=== PATIENT | female | born 1990 | race Caucasian/White ===

== ENCOUNTER 2016-06-30 02:02 | Emergency (ER) | payer OTHER ==
[~2016-06-30] VITALS: Ht 147.3 cm; Wt 45.4 kg
--- NOTE | ~2016-06-30 | EKG ---
[place], [place] ELECTROCARDIOGRAM REPORT NAME: IMMANUEL NEGRO UNIT #: [id number] ROOM: DOCTOR: MINAL SERNA MD BIRTHDATE: [birth year] DOS: 06/30/2016 TIME: 0213. FINDINGS: Sinus tachycardia with rate of 108. Otherwise, normal electrocardiogram. MINAL SERNA MD CM:EKGRPT:ELECTROCARDIOGRAM REPORT [id number] MINAL SERNA MD
[~2016-06-30 02:02] MED LIST: AMOXICILLIN500 MG PO; ANTIBIOTIC O500 U/GM TP; CATAPRES0.1 MG PO; CEPHALEXIN500 M1 PO; CLINDAMYCIN HC300 MG PO; FLEXERIL5 MG PO; HYDROCODONE BIT1 T11 PO; KEFLEX500 MG PO; MACRODANTIN100 M1 PO; MOTRIN600 MG PO; NAPROSYN500 MG PO; NKHM; NORFLEX100 MG PO; PENICILLIN VK500 MG PO; PERCOCET 325 MG1 TA2 PO; PREDNISONE20 MG PO; Peridex 473 ML473 ML PO; TORADOL10 MG PO; TRAMADOL HCL50 MG PO; ULTRAM50 MG PO; VALIUM10 MG PO; XANAX0.25 MG PO; ZANTAC150 MG PO; ZOFRAN ODT4 MG PO; ZOFRAN4 MG PO
[2016-06-30 02:16] LABS: HEMATOCRIT 39.8 % (37.0-47.0); HEMOGLOBIN 13.1 g/dl (12.0-16.0); MEAN CORPUSCULAR HGB 31.3 pg (27.0-31.0); MEAN CORPUSCULAR HGB CONC 32.9 g/dl (33.0-37.0); MEAN PLATELET VOLUME 9.5 fl (9.6-12.3); PLATELET COUNT AUTOMATED 345 10*3/uL (130-400); RED BLOOD COUNT 4.19 10*6/uL (4.10-5.10); RED CELL DISTRI WIDTH 13.8 % (0-14.5); WHITE BLOOD COUNT 18.9 10*3/uL (4.8-10.8)
[2016-06-30 02:26] LABS: PROTHROMBIN TIME 10.8 SECONDS (9.0-12.4)
[2016-06-30 02:35] LABS: ALBUMIN 3.5 gm/dl (3.1-4.5); ALKALINE PHOSPHATASE 30 U/L (45-117); ATYPICAL LYMPHS 1 % (0-0); BASOPHIL # 0.2 10*3/uL (0-0.1); BASOPHILS 1 % (0-1); BILIRUBIN, TOTAL 0.2 mg/dl (0.2-1.0); BUN 8 mg/dl (7-24); CARBON DIOXIDE 28 mmol/L (21-32); CHLORIDE 106 mmol/L (98-107); EOSINOPHIL # 0.2 10*3/uL (0-0.4); EOSINOPHILS 1 % (1-4); EST GLOM FILT AFRICAN AMERICAN > 60 ml/min; GLUCOSE 133 mg/dL (65-99); LYMPHOCYTE # 8.3 10*3/uL (1.3-4.4); MAGNESIUM 2.1 mg/dL (1.5-2.1); METAMYELOCYTES 1 % (0-0); MONOCYTE # 0.6 10*3/uL (0.1-1.0); NEUTROPHIL # 9.5 10*3/uL (2.3-7.9); NEUTROPHILS 50 % (47-73); PLATELET SUFFICIENCY NORMAL (NORMAL); POTASSIUM 2.9 mmol/L (3.5-5.1); SGOT/AST 13 IU/L (3-35); SGPT/ALT 15 U/L (12-78); SODIUM 142 mmol/L (136-145); TOTAL CELLS COUNTED 100 #CELLS; TOTAL PROTEIN 6.9 gm/dL (6.4-8.2)
[2016-06-30 02:36] LABS: TROPONIN I < 0.015 ng/ml (<0.045)
== END 2016-06-30 06:24 | disposition home or self-care (01) ==
LOC: ED 02:02
PROVIDERS: Student in an Organized Health Care Education/Training Program
DX: T40.1X1A Poisoning by heroin, accidental (unintentional), initial encounter (principal); E87.6 Hypokalemia; F17.200 Nicotine dependence, unspecified, uncomplicated; F41.8 Other specified anxiety disorders; Z98.890 Other specified postprocedural states; Y92.9 Unspecified place or not applicable

== ENCOUNTER 2017-08-20 09:47 | Emergency (ER) | payer SELFPAY ==
[~2017-08-20] VITALS: Wt 43.1 kg
[2017-08-20 10:27] LABS: BASO # 0.1 10*3/uL (0.0-0.1); BASO % 0.5 % (0.0-1.0); EOS # 0.2 10*3/uL (0.0-0.4); EOS % 2.1 % (1.0-4.0); HEMATOCRIT 48.1 % (37.0-47.0); HEMOGLOBIN 16.2 g/dl (12.0-16.0); LYMPH # 2.9 10*3/uL (1.3-4.4); MEAN CELL VOLUME 90.6 fl (81.0-99.0); MEAN CORPUSCULAR HGB 30.5 pg (27.0-31.0); MEAN CORPUSCULAR HGB CONC 33.7 g/dl (33.0-37.0); MEAN PLATELET VOLUME 9.8 fl (9.6-12.3); MONO # 0.5 10*3/uL (0.1-1.0); MONO % 5.4 % (3.0-9.0); NEUT # 5.6 10*3/uL (2.3-7.9); NEUT % 60.7 % (47.0-73.0); PLATELET COUNT AUTOMATED 265 10*3/uL (130-400); RED BLOOD COUNT 5.31 10*6/uL (4.10-5.10); RED CELL DISTRI WIDTH 14.3 % (0-14.5); WHITE BLOOD COUNT 9.3 10*3/uL (4.8-10.8)
[2017-08-20 10:45] LABS: CHLORIDE 108 mmol/L (98-107); POTASSIUM 3.4 mmol/L (3.5-5.1); SODIUM 140 mmol/L (136-145)
[2017-08-20 11:06] LABS: ALBUMIN 3.8 gm/dl (3.1-4.5); ALKALINE PHOSPHATASE 38 U/L (45-117); BUN 12 mg/dl (7-24); CREATININE 0.71 mg/dL (0.55-1.02); LIPASE 84 U/L (73-393); SGOT/AST 16 IU/L (3-35); SGPT/ALT 13 U/L (12-78); TOTAL PROTEIN 7.7 gm/dL (6.4-8.2)
[2017-08-20 11:07] LABS: BILIRUBIN 2+ (NEGATIVE); BLOOD NEGATIVE (NEGATIVE); CLARITY CLEAR (CLEAR); COLOR YELLOW (YELLOW); GLUCOSE NEGATIVE (NEGATIVE); KETONE 3+ (NEGATIVE); LEUKO ESTERASE NEGATIVE (NEGATIVE); NITRITE NEGATIVE (NEGATIVE); SPECIFIC GRAVITY 1.025 (1.005-1.030)
[2017-08-20 11:11] LABS: BETA-HCG, QUANT < 1.0 mIU/mL (1-3); ETHYL ALCOHOL < 3.0 mg/dl (<3); TROPONIN I < 0.015 ng/ml (<0.045)
[2017-08-20 11:14] LABS: URINE AMPHETAMINES < 1000 (1000ng/ml); URINE BARBITURATES < 200 (200ng/ml); URINE BENZODIAZEPINES < 200 (200ng/ml); URINE CANNABINOIDS (THC) < 50 (50ng/ml); URINE COCAINE > 300 (300ng/ml); URINE METHADONE < 300 (300ng/ml); URINE OPIATES > 300 (300ng/ml)
[2017-08-20 11:17] LABS: CALCIUM OXALATE CRYSTALS 1+; MUCOUS 2+
[2017-08-20 11:26] LABS: URINE PHENCYCLIDINE < 25 (25ng/ml)
== END 2017-08-20 18:25 | disposition home or self-care (01) ==
LOC: ED 09:47
PROVIDERS: Emergency Medicine
DX: F11.23 Opioid dependence with withdrawal (principal); R11.2 Nausea with vomiting, unspecified; R25.2 Cramp and spasm; R68.83 Chills (without fever)

== ENCOUNTER 2018-03-21 06:10 | Emergency (ER) | payer OTHER ==
[~2018-03-21] VITALS: Ht 147.3 cm; Wt 47.2 kg
[2018-03-21 06:29] LABS: BASO # 0.1 10*3/uL (0.0-0.1); BASO % 0.8 % (0.0-1.0); EOS # 0.4 10*3/uL (0.0-0.4); EOS % 4.4 % (1.0-4.0); HEMATOCRIT 41.1 % (37.0-47.0); HEMOGLOBIN 13.8 g/dl (12.0-16.0); LYMPH # 3.2 10*3/uL (1.3-4.4); LYMPH % 40.7 % (27.0-41.0); MEAN CELL VOLUME 92.8 fl (81.0-99.0); MEAN CORPUSCULAR HGB 31.2 pg (27.0-31.0); MEAN CORPUSCULAR HGB CONC 33.6 g/dl (33.0-37.0); MEAN PLATELET VOLUME 9.5 fl (9.6-12.3); MONO # 0.4 10*3/uL (0.1-1.0); MONO % 5.3 % (3.0-9.0); NEUT # 3.8 10*3/uL (2.3-7.9); NEUT % 48.7 % (47.0-73.0); PLATELET COUNT AUTOMATED 260 10*3/uL (130-400); RED BLOOD COUNT 4.43 10*6/uL (4.10-5.10); RED CELL DISTRI WIDTH 13.8 % (0-14.5); WHITE BLOOD COUNT 7.9 10*3/uL (4.8-10.8)
[2018-03-21 06:53] LABS: ALBUMIN 3.6 gm/dl (3.1-4.5); ALKALINE PHOSPHATASE 52 U/L (45-117); BUN 17 mg/dl (7-24); CHLORIDE 104 mmol/L (98-107); CREATININE 0.74 mg/dL (0.55-1.02); POTASSIUM 3.8 mmol/L (3.5-5.1); SGOT/AST 194 IU/L (3-35); SGPT/ALT 222 U/L (12-78); SODIUM 139 mmol/L (136-145); TOTAL PROTEIN 7.3 gm/dL (6.4-8.2)
[2018-03-21 06:54] LABS: ACETAMINOPHEN (TYLENOL) < 5.0 ug/ml (10-30); ETHYL ALCOHOL < 3.0 mg/dl (<3)
[2018-03-21 06:59] LABS: BETA-HCG, QUANT < 1.0 mIU/mL (1-3)
== END 2018-03-21 06:40 | disposition left against medical advice (07) ==
LOC: ED 06:10
PROVIDERS: Student in an Organized Health Care Education/Training Program
DX: R11.2 Nausea with vomiting, unspecified (principal); K08.89 Other specified disorders of teeth and supporting structures

== ENCOUNTER 2018-04-09 10:38 | Inpatient (IN) | payer OTHER ==
[~2018-04-09] VITALS: Ht 162.5 cm; Wt 49.0 kg
--- NOTE | ~2018-04-09 | EKG ---
[place], [place] ELECTROCARDIOGRAM REPORT NAME: IMMANUEL NEGRO UNIT #: [id number] ROOM: [facility] DOCTOR: TONY DRAFT REPORT BIRTHDATE: [birth year] [facility] Test Date: 2018-04-09 Test Time: 14:57:18 Pat Name: IMMANUEL NEGRO Department: Room: [facility] 2 Gender: F Supervisor [employer]: Odilia Huerta : 1990 Requested By: GODFREY DOLAN Order Number: [id number] Reading MD: Duc Sauceda MD Measurements Intervals [place] Rate: 77 P: 38 [place]: 122 QRS: 25 QRSD: 79 T: 29 QT: 392 QTc: 444 Interpretive Statements Sinus rhythm No previous ECG available for comparison Electronically Signed On 04-10-2018 15:44:51 PST by Duc Sauceda MD CM:EKGRPT:ELECTROCARDIOGRAM REPORT [id number] GODFREY CRUMP DRAFT REPORT GODFREY DOLAN DO
[2018-04-09 10:39] VITALS: BP 112/79
[2018-04-09 11:16] LABS: BILIRUBIN NEGATIVE (NEGATIVE); BLOOD NEGATIVE (NEGATIVE); CLARITY SL CLOUDY (CLEAR); COLOR YELLOW (YELLOW); GLUCOSE NEGATIVE (NEGATIVE); KETONE NEGATIVE (NEGATIVE); LEUKO ESTERASE 1+ (NEGATIVE); NITRITE NEGATIVE (NEGATIVE)
[2018-04-09 11:27] LABS: URINE AMPHETAMINES < 1000 (1000ng/ml); URINE BARBITURATES < 200 (200ng/ml); URINE BENZODIAZEPINES < 200 (200ng/ml); URINE CANNABINOIDS (THC) < 50 (50ng/ml); URINE COCAINE > 300 (300ng/ml); URINE METHADONE < 300 (300ng/ml); URINE OPIATES < 300 (300ng/ml); URINE PHENCYCLIDINE < 25 (25ng/ml)
[2018-04-09 11:32] LABS: BASO # 0.1 10*3/uL (0.0-0.1); BASO % 0.7 % (0.0-1.0); EOS # 0.2 10*3/uL (0.0-0.4); EOS % 2.6 % (1.0-4.0); HEMATOCRIT 43.8 % (37.0-47.0); HEMOGLOBIN 14.7 g/dl (12.0-16.0); LYMPH # 2.8 10*3/uL (1.3-4.4); LYMPH % 30.3 % (27.0-41.0); MEAN CORPUSCULAR HGB 30.9 pg (27.0-31.0); MEAN CORPUSCULAR HGB CONC 33.6 g/dl (33.0-37.0); MEAN PLATELET VOLUME 9.4 fl (9.6-12.3); MONO # 0.6 10*3/uL (0.1-1.0); MONO % 6.3 % (3.0-9.0); NEUT # 5.5 10*3/uL (2.3-7.9); NEUT % 59.8 % (47.0-73.0); PLATELET COUNT AUTOMATED 368 10*3/uL (130-400); RED BLOOD COUNT 4.76 10*6/uL (4.10-5.10); WHITE BLOOD COUNT 9.2 10*3/uL (4.8-10.8)
[2018-04-09 11:32] LABS: BACTERIA 1+; EPITHELIAL CELLS 21-3; MUCOUS 1+
[2018-04-09 11:47] LABS: ALBUMIN 3.9 gm/dl (3.1-4.5); ALKALINE PHOSPHATASE 49 U/L (45-117); BUN 14 mg/dl (7-24); CHLORIDE 111 mmol/L (98-107); CREATININE 0.78 mg/dL (0.55-1.02); SGOT/AST 13 IU/L (3-35); SGPT/ALT 17 U/L (12-78); SODIUM 144 mmol/L (136-145); TOTAL PROTEIN 8.3 gm/dL (6.4-8.2)
--- NOTE | 2018-04-09 11:47 | NUR ---
PATIENT DECLINES WHEELCHAIR
--- NOTE | 2018-04-09 11:50 | NUR ---
27 year old FEMALE admitted to room # 515-2 for stabilization. Reports an addiction to HEROIN, COCAINE last used 2 DAYS prior to admission. Compliant with admission procedure. Patient COMPLAINS OF RESTLESS LEGS, ABD CRAMPING, AND ANXIETY. See assessment forms for additional information about patient status.
[2018-04-09 11:55] LABS: THYROID STIM HORMONE (HS) 0.209 uIU/ml (0.358-4.75)
[2018-04-09 11:56] LABS: ETHYL ALCOHOL < 3.0 mg/dl (<3)
[2018-04-09 12:00] VITALS: BP 116/81
--- NOTE | 2018-04-09 12:48 | NUR ---
PATIENT MEDICATED WITH BENTYL, VISTARIL, AND NICODERM AT THIS TIME PER ORDER FOR COMPLAINTS OF ABD CRAMPING, ANXIETY, AND NICOTINE CRAVINGS. WILL MONITOR.
--- NOTE | 2018-04-09 13:52 | NUR ---
PATIENT STATES PRNS HAVE BEEN EFFECTIVE BUT C/O MUSCLE ACHES AT THIS TIME. MEDICATED WITH ROBAXIN PER ORDER. WILL MONITOR.
--- NOTE | 2018-04-09 15:00 | NUR ---
PER PATIENT, ROBAXIN HAS BEEN EFFECTIVE.
[2018-04-09 16:00] VITALS: BP 104/67
--- NOTE | 2018-04-09 16:25 | NUR ---
PATIENT MEETS [facility]. REFERRAL OPTIONS WERE DISCUSSED WITH THE PATIENT. SHE WILL FOLLOW UP WITH [facility] FOR OUTPATIENT COUNSELING ONCE DISCHARGED. PRETTY BROWN MS WASTE AND BATTING WASTE CHOPPER
--- NOTE | 2018-04-09 19:00 | NUR ---
PT UP AND IN THE RESTROOM. REPORT RECIEVED FROM ARUN GOLDEN. WILL CONTINUE TO MONITOR.
[2018-04-09 20:00] VITALS: BP 108/69
--- NOTE | 2018-04-09 20:07 | NUR ---
WHILE ADMINISTERING SCHEDULED DOSE OF SUBUTEX, PT COMPLAINED OF ANXIETY AND INSOMNIA. SHE WAS VISIBLY AGGITATED AND FIDGETY. PT ADMINISTERED PRN VISTARIL AND TRAZADONE. CALL LIGHT WITHIN REACH, WILL CONTINUE TO MONITOR.
--- NOTE | 2018-04-09 21:00 | NUR ---
PT ASLEEP. NO S/S OF DISTRESS NOTED. PRN MEDICATIONS EFFECTIVE. WILL CONTINUE TO MONITOR.
--- NOTE | 2018-04-09 23:11 | NUR ---
24 HR CHART CHECK COMPLETE
[2018-04-10] VITALS: BP 100/61
[2018-04-10 08:00] VITALS: BP 103/63
--- NOTE | 2018-04-10 08:30 | NUR ---
PT MEDICATED WITH PO VISTARIL AT THIS TIME PER ORDER FOR COMPLAINTS OF ANXIETY. WILL MONITOR FOR EFFECTIVENESS.
[2018-04-10 12:00] VITALS: BP 99/50
--- NOTE | 2018-04-10 15:28 | NUR ---
PATIENT IS GOING TO FOLLOW UP WITH THE [facility] IN [place]. PATIENT WILL FOLLOW UP WITH FACILITY UPON DISCHARGE. PATIENT AGREES AND UNDERSTANDS HER AFTERCARE PLAN. STANLEY DIAZ B.A. PLACEMENT INTERVIEWER
[2018-04-10 16:00] VITALS: BP 111/50
--- NOTE | 2018-04-10 17:44 | NUR ---
PT MEDICATED WITH MOTRIN, ROBAXIN, AND VISTARIL AT THIS TIME FOR COMPLAINTS OF MUSCLE ACHES AND AGITATION. WILL MONITOR FOR EFFECTIVENESS.
[2018-04-10 20:00] VITALS: BP 104/66
[2018-04-11] VITALS: BP 111/66
--- NOTE | 2018-04-11 03:05 | NUR ---
PATIENT RESTING IN BED WITH EYES CLOSED. RESPIRATIONS ARE EASY AND REGULAR. NO DISTRESS IS NOTED. CALL LIGHT IS WITHIN REACH. WILL CONTINUE TO MONITOR.
[2018-04-11 08:00] VITALS: BP 98/60
--- NOTE | 2018-04-11 11:00 | NUR ---
PTS MOTHER IS ASKING ABOUT EARLY DISCHARGE FOR PT. INQUIRING ABOUT [facility] IN [facility]. PT DOES NOT WANT TO STAY UNTIL TOMORROW FOR HER LAST DOSE OF SUBUTEX. PT STATES SHE NEEDS A CIGARETTE. [facility] WAS CALLED AND WILL BE COMING TO SPEAK WITH THE PT AND FAMILY.
[2018-04-11] MEDS ORDERED: ZOFRAN 4 MG ED2 TAB PO (11:43)
[2018-04-11] MEDS ORDERED: ATARAX,VISTARIL50 MG PO (11:43)
[2018-04-11] MEDS ORDERED: ROPINIROLE HYD0.5 MG PO (11:43)
[2018-04-11] MEDS ORDERED: DICYCLOMINE HCL20 MG PO (11:43)
[2018-04-11] MEDS ORDERED: METHOCARBAMOL750 M1 PO (11:43)
--- NOTE | 2018-04-11 12:15 | NUR ---
DR. DOLAN INSTRUCTED ME TO GIVE PTS SUBUTEX EARLY. PT RECIEVED MEDICATION.
--- NOTE | 2018-04-11 13:53 | NUR ---
PT DISCHARGED. INSTRUCTIONS GIVEN TO PT AND HER MOTHER. MOTHER ACCOMPANIED HER OFF OF FLOOR. PT REFUSED WHEELCHAIR.
== END 2018-04-11 13:53 | disposition home or self-care (01) | DRG 897 ==
LOC: ED 10:38 → 5E 11:08 → EDHOLD 11:08 → 5E 11:39
PROVIDERS: Emergency Medicine; Internal Medicine; ADMIT Internal Medicine
DX: F11.23 Opioid dependence with withdrawal (principal); E87.8 Other disorders of electrolyte and fluid balance, not elsewhere classified; F41.9 Anxiety disorder, unspecified; G25.81 Restless legs syndrome; R00.0 Tachycardia, unspecified; B19.20 Unspecified viral hepatitis C without hepatic coma; Z71.6 Tobacco abuse counseling; Z72.0 Tobacco use; Z87.440 Personal history of urinary (tract) infections; Z80.0 Family history of malignant neoplasm of digestive organs

== ENCOUNTER 2018-10-29 09:47 | Emergency (ER) | payer SELFPAY ==
[~2018-10-29] VITALS: Ht 147.3 cm; Wt 47.6 kg
[~2018-10-29 09:47] MED LIST changes: +ATARAX,VISTARIL50 MG PO; +DICYCLOMINE HCL20 MG PO; +METHOCARBAMOL750 M1 PO; +ROPINIROLE HYD0.5 MG PO; +ZOFRAN 4 MG ED2 TAB PO
== END 2018-10-29 09:57 | disposition left against medical advice (07) ==
LOC: ED 09:47
DX: Z01.00 Encounter for examination of eyes and vision without abnormal findings (principal); F17.200 Nicotine dependence, unspecified, uncomplicated; Z79.899 Other long term (current) drug therapy; Z53.21 Procedure and treatment not carried out due to patient leaving prior to being seen by health care provider

== ENCOUNTER 2018-12-26 13:58 | Emergency (ER) | payer SELFPAY ==
[~2018-12-26] VITALS: Ht 147.3 cm; Wt 43.1 kg
[2018-12-26 15:34] LABS: BASO % 0.2 % (0.0-1.0); EOS # 0.1 10*3/uL (0.0-0.4); EOS % 0.8 % (1.0-4.0); HEMATOCRIT 32.7 % (37.0-47.0); HEMOGLOBIN 10.5 g/dl (12.0-16.0); LYMPH # 2.2 10*3/uL (1.3-4.4); LYMPH % 16.7 % (27.0-41.0); MEAN CELL VOLUME 93.7 fl (81.0-99.0); MEAN CORPUSCULAR HGB 30.1 pg (27.0-31.0); MEAN CORPUSCULAR HGB CONC 32.1 g/dl (33.0-37.0); MEAN PLATELET VOLUME 8.9 fl (9.6-12.3); MONO # 0.6 10*3/uL (0.1-1.0); MONO % 4.9 % (3.0-9.0); NEUT # 10.2 10*3/uL (2.3-7.9); NEUT % 77.2 % (47.0-73.0); PLATELET COUNT AUTOMATED 399 10*3/uL (130-400); RED BLOOD COUNT 3.49 10*6/uL (4.10-5.10); RED CELL DISTRI WIDTH 14.8 % (0-14.5); WHITE BLOOD COUNT 13.2 10*3/uL (4.8-10.8)
[2018-12-26 15:50] LABS: ALBUMIN 2.6 gm/dl (3.1-4.5); ALKALINE PHOSPHATASE 39 U/L (45-117); BUN 13 mg/dl (7-24); CHLORIDE 109 mmol/L (98-107); CREATININE 0.42 mg/dL (0.55-1.02); POTASSIUM 3.4 mmol/L (3.5-5.1); SGOT/AST 56 IU/L (3-35); SGPT/ALT 54 U/L (12-78); SODIUM 137 mmol/L (136-145); TOTAL PROTEIN 6.4 gm/dL (6.4-8.2)
[2018-12-26] MEDS ORDERED: IBU800 MG PO (16:05)
[2018-12-26] MEDS ORDERED: CLEOCIN HCL150 MG PO (16:05)
== END 2018-12-26 16:11 | disposition home or self-care (01) ==
LOC: ED 13:58
PROVIDERS: Nurse Practitioner Family
DX: L03.011 Cellulitis of right finger (principal); F17.200 Nicotine dependence, unspecified, uncomplicated

== ENCOUNTER 2019-01-23 21:20 | Inpatient (IN) | payer MEDICAID ==
[2019-01-23] VITALS (22 sets, daily range): BP systolic 104–153; BP diastolic 51–89
[~2019-01-23] VITALS: Ht 147.3 cm; Wt 41.8 kg
[~2019-01-23 21:20] MED LIST changes: +CLEOCIN HCL150 MG PO; +IBU800 MG PO
[2019-01-23 21:51] LABS: BASO % 0.3 % (0.0-1.0); EOS # 0.1 10*3/uL (0.0-0.4); EOS % 0.4 % (1.0-4.0); HEMATOCRIT 42.6 % (37.0-47.0); HEMOGLOBIN 14.5 g/dl (12.0-16.0); LYMPH # 1.2 10*3/uL (1.3-4.4); LYMPH % 9.9 % (27.0-41.0); MEAN CELL VOLUME 89.3 fl (81.0-99.0); MEAN CORPUSCULAR HGB 30.4 pg (27.0-31.0); MEAN PLATELET VOLUME 10.7 fl (9.6-12.3); MONO # 1.1 10*3/uL (0.1-1.0); MONO % 8.6 % (3.0-9.0); NEUT # 9.7 10*3/uL (2.3-7.9); NEUT % 79.4 % (47.0-73.0); PLATELET COUNT AUTOMATED 127 10*3/uL (130-400); RED BLOOD COUNT 4.77 10*6/uL (4.10-5.10); RED CELL DISTRI WIDTH 15.5 % (0-14.5); WHITE BLOOD COUNT 12.2 10*3/uL (4.8-10.8)
[2019-01-23 22:05] LABS: ALBUMIN 2.7 gm/dl (3.1-4.5); ALKALINE PHOSPHATASE 43 U/L (45-117); BUN 23 mg/dl (7-24); CHLORIDE 97 mmol/L (98-107); CREATININE 1.37 mg/dL (0.55-1.02); POTASSIUM 2.9 mmol/L (3.5-5.1); SGOT/AST 17 IU/L (3-35); SGPT/ALT 14 U/L (12-78); SODIUM 129 mmol/L (136-145); TOTAL PROTEIN 7.7 gm/dL (6.4-8.2)
[2019-01-23 22:07] LABS: ETHYL ALCOHOL < 3.0 mg/dl (<3)
[2019-01-23 22:07] LABS: ABG BASE EXCESS -1.5 mmol/L (-2.0-2.0); ARTERIAL BLOOD GAS PH 7.498 (7.35-7.45)
[2019-01-23 22:08] LABS: ACETAMINOPHEN (TYLENOL) < 5.0 ug/ml (10-30)
[2019-01-23 22:13] LABS: THYROID STIM HORMONE (HS) 0.091 uIU/ml (0.358-4.75)
[2019-01-23 22:22] LABS: BILIRUBIN NEGATIVE (NEGATIVE); BLOOD 2+ (NEGATIVE); CLARITY SL CLOUDY (CLEAR); COLOR YELLOW (YELLOW); GLUCOSE NEGATIVE (NEGATIVE); KETONE NEGATIVE (NEGATIVE); LEUKO ESTERASE 1+ (NEGATIVE); NITRITE POSITIVE (NEGATIVE); UROBILINOGEN 0.2 E.U./dl (0.2-1.0)
[2019-01-23 22:30] LABS: URINE AMPHETAMINES < 1000 (1000ng/ml); URINE BARBITURATES < 200 (200ng/ml); URINE BENZODIAZEPINES > 200 (200ng/ml); URINE CANNABINOIDS (THC) < 50 (50ng/ml); URINE COCAINE < 300 (300ng/ml); URINE METHADONE < 300 (300ng/ml); URINE OPIATES > 300 (300ng/ml)
[2019-01-23 22:34] LABS: URINE PHENCYCLIDINE < 25 (25ng/ml)
[2019-01-23 22:50] LABS: BACTERIA 4+; WBC 16-20 wbc/hpf (0-5)
[2019-01-24] VITALS (52 sets, daily range): BP systolic 79–109; BP diastolic 42–66
[2019-01-24] MEDS ORDERED: IRON325 M1 PO (03:15)
[2019-01-24 07:42] LABS: ARTERIAL BLOOD GAS PH 7.361 (7.35-7.45)
[2019-01-24 07:43] LABS: ABG BASE EXCESS -8.4 mmol/L (-2.0-2.0)
[2019-01-24 13:47] LABS: BUN 14 mg/dl (7-24); CHLORIDE 117 mmol/L (98-107); CREATININE 0.72 mg/dL (0.55-1.02); POTASSIUM 2.5 mmol/L (3.5-5.1)
[2019-01-24 13:49] LABS: SODIUM 144 mmol/L (136-145)
[2019-01-24 14:50] LABS: ARTERIAL BLOOD GAS PH 7.402 (7.35-7.45)
[2019-01-24 14:51] LABS: ABG BASE EXCESS -7.8 mmol/L (-2.0-2.0)
[2019-01-24 15:03] LABS: TROPONIN I 0.104 ng/ml (<0.045)
[2019-01-24 17:38] LABS: ARTERIAL BLOOD GAS PH 7.392 (7.35-7.45)
[2019-01-24 17:41] LABS: ABG BASE EXCESS -8.5 mmol/L (-2.0-2.0)
[2019-01-24 17:57] LABS: ARTERIAL BLOOD GAS PH 7.388 (7.35-7.45)
[2019-01-24 17:58] LABS: ABG BASE EXCESS -7.6 mmol/L (-2.0-2.0)
[2019-01-24 19:48] LABS: BUN 12 mg/dl (7-24); CHLORIDE 118 mmol/L (98-107); CREATININE 0.72 mg/dL (0.55-1.02); POTASSIUM 2.8 mmol/L (3.5-5.1); SODIUM 145 mmol/L (136-145)
[2019-01-25] VITALS (13 sets, daily range): BP systolic 86–116; BP diastolic 42–71
[2019-01-25 05:38] LABS: HEMATOCRIT 26.6 % (37.0-47.0); HEMOGLOBIN 8.7 g/dl (12.0-16.0); MEAN CELL VOLUME 91.4 fl (81.0-99.0); MEAN CORPUSCULAR HGB 29.9 pg (27.0-31.0); MEAN CORPUSCULAR HGB CONC 32.7 g/dl (33.0-37.0); MEAN PLATELET VOLUME 12.2 fl (9.6-12.3); RED BLOOD COUNT 2.91 10*6/uL (4.10-5.10); RED CELL DISTRI WIDTH 16.4 % (0-14.5); WHITE BLOOD COUNT 7.3 10*3/uL (4.8-10.8)
[2019-01-25 05:47] LABS: ALBUMIN 1.5 gm/dl (3.1-4.5); ALKALINE PHOSPHATASE 27 U/L (45-117); BUN 13 mg/dl (7-24); CHLORIDE 122 mmol/L (98-107); CHOLESTEROL 72 mg/dL (<200); CREATININE 0.66 mg/dL (0.55-1.02); HDL CHOLESTEROL 7 mg/dl (40-60); PHOSPHOROUS 1.1 mg/dL (2.5-4.9); SGOT/AST 22 IU/L (3-35); SGPT/ALT 8 U/L (12-78); SODIUM 147 mmol/L (136-145); TRIGLYCERIDES 432 mg/dl (<150)
[2019-01-25 06:27] LABS: PLATELET COUNT AUTOMATED 79 10*3/uL (130-400)
[2019-01-25 06:30] LABS: ATYPICAL LYMPHS 1 % (0-0); TOTAL CELLS COUNTED 100 #CELLS
[2019-01-25 06:31] LABS: BURR CELLS FEW; DOHLE BODIES FEW; PLATELET SUFFICIENCY LOW (NORMAL); SCHISTOCYTES FEW; TOXIC GRANULATION SLIGHT; VACUOLATION OF NEUTROPHILS SLIGHT
[2019-01-25 08:45] LABS: ABG BASE EXCESS -7.3 mmol/L (-2.0-2.0); ARTERIAL BLOOD GAS PH 7.381 (7.35-7.45)
[2019-01-25 17:23] LABS: POTASSIUM 3.7 mmol/L (3.5-5.1)
[2019-01-25 17:29] LABS: PHOSPHOROUS 2.1 mg/dL (2.5-4.9)
[2019-01-25 18:06] LABS: ACID FAST SPEC PROCESSING Concentration (.)
[2019-01-26] VITALS (12 sets, daily range): BP systolic 102–124; BP diastolic 53–73
[2019-01-26 06:04] LABS: HEMATOCRIT 24.5 % (37.0-47.0); HEMOGLOBIN 8.2 g/dl (12.0-16.0); MEAN CELL VOLUME 89.7 fl (81.0-99.0); MEAN CORPUSCULAR HGB CONC 33.5 g/dl (33.0-37.0); MEAN PLATELET VOLUME 12.4 fl (9.6-12.3); PLATELET COUNT AUTOMATED 94 10*3/uL (130-400); RED BLOOD COUNT 2.73 10*6/uL (4.10-5.10); RED CELL DISTRI WIDTH 16.9 % (0-14.5); WHITE BLOOD COUNT 11.6 10*3/uL (4.8-10.8)
[2019-01-26 06:06] LABS: ALBUMIN 1.5 gm/dl (3.1-4.5); ALKALINE PHOSPHATASE 53 U/L (45-117); BUN 11 mg/dl (7-24); CHLORIDE 120 mmol/L (98-107); CREATININE 0.53 mg/dL (0.55-1.02); PHOSPHOROUS 1.8 mg/dL (2.5-4.9); SGOT/AST 30 IU/L (3-35); SGPT/ALT 10 U/L (12-78); TOTAL PROTEIN 5.4 gm/dL (6.4-8.2)
[2019-01-26 06:34] LABS: POTASSIUM 2.8 mmol/L (3.5-5.1); SODIUM 150 mmol/L (136-145)
[2019-01-26 07:19] LABS: TOTAL CELLS COUNTED 100 #CELLS
[2019-01-26 07:20] LABS: PLATELET SUFFICIENCY LOW (NORMAL); POLYCHROMASIA SLIGHT
[2019-01-26 07:21] LABS: BURR CELLS FEW
[2019-01-26 08:46] LABS: ARTERIAL BLOOD GAS PH 7.377 (7.35-7.45)
[2019-01-26 08:47] LABS: ABG BASE EXCESS -9.5 mmol/L (-2.0-2.0)
[2019-01-27] VITALS (10 sets, daily range): BP systolic 115–144; BP diastolic 50–91
[2019-01-27 04:56] LABS: HEMOGLOBIN 7.5 g/dl (12.0-16.0); MEAN CELL VOLUME 89.8 fl (81.0-99.0); MEAN CORPUSCULAR HGB 29.3 pg (27.0-31.0); MEAN CORPUSCULAR HGB CONC 32.6 g/dl (33.0-37.0); MEAN PLATELET VOLUME 12.4 fl (9.6-12.3); PLATELET COUNT AUTOMATED 118 10*3/uL (130-400); RED BLOOD COUNT 2.56 10*6/uL (4.10-5.10); RED CELL DISTRI WIDTH 16.9 % (0-14.5); WHITE BLOOD COUNT 13.8 10*3/uL (4.8-10.8)
[2019-01-27 05:08] LABS: ALBUMIN 1.5 gm/dl (3.1-4.5); BUN 11 mg/dl (7-24); CHLORIDE 117 mmol/L (98-107); POTASSIUM 3.5 mmol/L (3.5-5.1); SGOT/AST 24 IU/L (3-35); SGPT/ALT 10 U/L (12-78); SODIUM 146 mmol/L (136-145)
[2019-01-27 05:11] LABS: ALKALINE PHOSPHATASE 36 U/L (45-117); PHOSPHOROUS 3.3 mg/dL (2.5-4.9); TOTAL PROTEIN 5.6 gm/dL (6.4-8.2)
[2019-01-27 05:37] LABS: BURR CELLS FEW; PLATELET SUFFICIENCY LOW (NORMAL); TOTAL CELLS COUNTED 100 #CELLS
[2019-01-27 05:38] LABS: TARGET CELLS FEW; TOXIC GRANULATION SLIGHT
[2019-01-27 08:15] LABS: ARTERIAL BLOOD GAS PH 7.447 (7.35-7.45)
[2019-01-27] MEDS ORDERED: LEVOFLOXAC750 MG/150 IV (17:23)
[2019-01-27] MEDS ORDERED: ZOSYN 3.373.375 GM/1 IV (17:24)
== END 2019-01-27 18:14 | disposition short-term general hospital (02) | DRG 720 ==
LOC: ED 21:20 → EDHOLD 01-24 02:01 → ICCU 01-24 02:01
PROVIDERS: Emergency Medicine; Internal Medicine; Internal Medicine Critical Care Medicine; Student in an Organized Health Care Education/Training Program; ADMIT Family Medicine
PROC: 5A1945Z Respiratory Ventilation, 24-96 Consecutive Hours (ICD-10-PCS; principal; 2019-01-24)
PROC: 0BH17EZ Insertion of Endotracheal Airway into Trachea, Via Natural or Artificial Opening (ICD-10-PCS; principal; 2019-01-24)
PROC: 0BC18ZZ Extirpation of Matter from Trachea, Via Natural or Artificial Opening Endoscopic (ICD-10-PCS; 2019-01-24)
PROC: 0BC98ZZ Extirpation of Matter from Lingula Bronchus, Via Natural or Artificial Opening Endoscopic (ICD-10-PCS; 2019-01-24)
PROC: 0BC48ZZ Extirpation of Matter from Right Upper Lobe Bronchus, Via Natural or Artificial Opening Endoscopic (ICD-10-PCS; 2019-01-24)
PROC: 0BC88ZZ Extirpation of Matter from Left Upper Lobe Bronchus, Via Natural or Artificial Opening Endoscopic (ICD-10-PCS; 2019-01-24)
PROC: 0BC58ZZ Extirpation of Matter from Right Middle Lobe Bronchus, Via Natural or Artificial Opening Endoscopic (ICD-10-PCS; 2019-01-24)
PROC: 0BC38ZZ Extirpation of Matter from Right Main Bronchus, Via Natural or Artificial Opening Endoscopic (ICD-10-PCS; 2019-01-24)
PROC: 0BC78ZZ Extirpation of Matter from Left Main Bronchus, Via Natural or Artificial Opening Endoscopic (ICD-10-PCS; 2019-01-24)
PROC: 0BC68ZZ Extirpation of Matter from Right Lower Lobe Bronchus, Via Natural or Artificial Opening Endoscopic (ICD-10-PCS; 2019-01-24)
PROC: 0BCB8ZZ Extirpation of Matter from Left Lower Lobe Bronchus, Via Natural or Artificial Opening Endoscopic (ICD-10-PCS; 2019-01-24)
PROC: 02HV33Z Insertion of Infusion Device into Superior Vena Cava, Percutaneous Approach (ICD-10-PCS; 2019-01-25)
PROC: B548ZZA Ultrasonography of Superior Vena Cava, Guidance (ICD-10-PCS; 2019-01-25)
DX: A41.9 Sepsis, unspecified organism (principal); J96.01 Acute respiratory failure with hypoxia; N17.0 Acute kidney failure with tubular necrosis; E43 Unspecified severe protein-calorie malnutrition; N39.0 Urinary tract infection, site not specified; E87.1 Hypo-osmolality and hyponatremia; T50.901A Poisoning by unspecified drugs, medicaments and biological substances, accidental (unintentional), initial encounter; E87.6 Hypokalemia; F13.10 Sedative, hypnotic or anxiolytic abuse, uncomplicated; F32.9 Major depressive disorder, single episode, unspecified; J69.0 Pneumonitis due to inhalation of food and vomit; F41.0 Panic disorder [episodic paroxysmal anxiety]; G25.81 Restless legs syndrome; T40.1X1A Poisoning by heroin, accidental (unintentional), initial encounter; E83.39 Other disorders of phosphorus metabolism; R65.20 Severe sepsis without septic shock; D69.6 Thrombocytopenia, unspecified; J15.211 Pneumonia due to Methicillin susceptible Staphylococcus aureus; I36.8 Other nonrheumatic tricuspid valve disorders; Z80.0 Family history of malignant neoplasm of digestive organs; Z86.19 Personal history of other infectious and parasitic diseases; Y92.89 Other specified places as the place of occurrence of the external cause; Z68.1 Body mass index [BMI] 19.9 or less, adult; Z79.899 Other long term (current) drug therapy

== ENCOUNTER 2019-03-10 14:19 | Inpatient (IN) | payer OTHER ==
[~2019-03-10] VITALS: Ht 147.3 cm; Wt 40.1 kg
[~2019-03-10 14:19] MED LIST changes: +IRON325 M1 PO; +LEVOFLOXAC750 MG/150 IV; +ZOSYN 3.373.375 GM/1 IV
[2019-03-10 14:21] VITALS: BP 124/91
[2019-03-10 14:48] LABS: BILIRUBIN NEGATIVE (NEGATIVE); BLOOD TRACE-INTACT (NEGATIVE); CLARITY SL CLOUDY (CLEAR); COLOR YELLOW (YELLOW); GLUCOSE NEGATIVE (NEGATIVE); KETONE NEGATIVE (NEGATIVE); LEUKO ESTERASE NEGATIVE (NEGATIVE); NITRITE NEGATIVE (NEGATIVE); SPECIFIC GRAVITY >= 1.030 (1.005-1.030); UROBILINOGEN 0.2 E.U./dl (0.2-1.0)
[2019-03-10 14:54] LABS: HEMATOCRIT 39.3 % (37.0-47.0); HEMOGLOBIN 12.7 g/dl (12.0-16.0); MEAN CELL VOLUME 91.2 fl (81.0-99.0); MEAN CORPUSCULAR HGB 29.5 pg (27.0-31.0); MEAN CORPUSCULAR HGB CONC 32.3 g/dl (33.0-37.0); MEAN PLATELET VOLUME 9.6 fl (9.6-12.3); PLATELET COUNT AUTOMATED 322 10*3/uL (130-400); RED BLOOD COUNT 4.31 10*6/uL (4.10-5.10); RED CELL DISTRI WIDTH 14.9 % (0-14.5); WHITE BLOOD COUNT 11.1 10*3/uL (4.8-10.8)
[2019-03-10 14:57] LABS: URINE AMPHETAMINES < 1000 (1000ng/ml); URINE BARBITURATES < 200 (200ng/ml); URINE BENZODIAZEPINES < 200 (200ng/ml); URINE CANNABINOIDS (THC) < 50 (50ng/ml); URINE COCAINE < 300 (300ng/ml); URINE METHADONE > 300 (300ng/ml); URINE OPIATES > 300 (300ng/ml)
[2019-03-10 15:00] LABS: BACTERIA 2+; FINE GRANULAR CAST 0-2
[2019-03-10 15:01] LABS: URINE PHENCYCLIDINE < 25 (25ng/ml)
--- NOTE | 2019-03-10 15:03 | NUR ---
[place] STAFF MEETS WITH PATIENT. PATIENT MEETS [facility]. MARITZA IS WANTING RESIDENTIAL TREATMENT FOR HER AFTERCARE PLAN, ALONG WITH THE VIVITROL SHOT. [facility] STAFF SPOKE WITH PATIENT ABOUT REFERRAL OPTIONS. [facility] STAFF WILL FOLLOW UP WITH PATIENT CONCERNING HER AFTERCARE PLAN. STANLEY DIAZ B.A. CHILD CARE SPECIALIST
[2019-03-10 15:09] LABS: ALBUMIN 3.4 gm/dl (3.1-4.5); ALKALINE PHOSPHATASE 63 U/L (45-117); BUN 8 mg/dl (7-24); CHLORIDE 108 mmol/L (98-107); CREATININE 0.57 mg/dL (0.55-1.02); POTASSIUM 3.5 mmol/L (3.5-5.1); SGOT/AST 10 IU/L (3-35); SGPT/ALT 14 U/L (12-78); SODIUM 139 mmol/L (136-145); TOTAL PROTEIN 7.8 gm/dL (6.4-8.2)
[2019-03-10 15:22] LABS: BASOPHILS 3 % (0-1); TOTAL CELLS COUNTED 100 #CELLS
[2019-03-10 15:23] LABS: PLATELET SUFFICIENCY NORMAL (NORMAL)
[2019-03-10 16:20] VITALS: BP 123/88
[2019-03-10] MEDS ORDERED: TRAZODONE50 MG PO (16:36)
[2019-03-10] MEDS ORDERED: LISINOPRIL20 MG PO (16:36)
[2019-03-10 20:00] VITALS: BP 148/96
--- NOTE | 2019-03-10 21:43 | NUR ---
MEDICATED WITH PRN MEDICATIONS FOR WITHDRAWAL SYMPTOMS. WILL MONITOR
[2019-03-11] VITALS: BP 126/84
[2019-03-11 06:43] LABS: BASO # 0.1 10*3/uL (0.0-0.1); BASO % 1.2 % (0.0-1.0); EOS # 0.4 10*3/uL (0.0-0.4); EOS % 5.1 % (1.0-4.0); HEMATOCRIT 42.7 % (37.0-47.0); HEMOGLOBIN 13.6 g/dl (12.0-16.0); LYMPH % 59.7 % (27.0-41.0); MEAN CELL VOLUME 89.7 fl (81.0-99.0); MEAN CORPUSCULAR HGB 28.6 pg (27.0-31.0); MEAN CORPUSCULAR HGB CONC 31.9 g/dl (33.0-37.0); MEAN PLATELET VOLUME 9.7 fl (9.6-12.3); MONO # 0.5 10*3/uL (0.1-1.0); MONO % 5.9 % (3.0-9.0); NEUT # 2.3 10*3/uL (2.3-7.9); PLATELET COUNT AUTOMATED 323 10*3/uL (130-400); RED BLOOD COUNT 4.76 10*6/uL (4.10-5.10); RED CELL DISTRI WIDTH 14.6 % (0-14.5); WHITE BLOOD COUNT 8.3 10*3/uL (4.8-10.8)
[2019-03-11 07:17] LABS: BUN 7 mg/dl (7-24); CHLORIDE 108 mmol/L (98-107); CREATININE 0.54 mg/dL (0.55-1.02); POTASSIUM 3.3 mmol/L (3.5-5.1); SODIUM 140 mmol/L (136-145)
--- NOTE | 2019-03-11 07:56 | NUR ---
PT HYPERTENSIVE W/ C/O "I'M GOING TO " FROM SWEATING, PAIN AND COLD.
[2019-03-11 08:00] VITALS: BP 145/100
--- NOTE | 2019-03-11 08:11 | NUR ---
MEDICATED WITH PO ROBAXIN, BENTYL, TYLENOL AND VISTARIL ORDERED PER PT REQUEST FOR C/O MUSCLE CRAMPING/ACHES AND ANXIETY R/T WITHDRAWL.
--- NOTE | 2019-03-11 11:40 | NUR ---
[place] STAFF SENT REFERRAL TO [facility] FOR PATIENT. [place] STAFF WILL FOLLOW UP WITH PATIENT CONCERNING HER AFTERCARE PLAN. STANLEY DIAZ B.A. INTAKE COORDIANTOR
[2019-03-11 12:00] VITALS: BP 111/75
--- NOTE | 2019-03-11 13:02 | NUR ---
MEDICATED WITH PO TYLENOL ORDERED PER PT REQUEST FOR C/O BODY ACHES.
--- NOTE | 2019-03-11 13:55 | NUR ---
[place] STAFF SPOKE WITH [facility] AND DUE TO PATIENT'S RECENT PAST MEDICAL HISTORY THAT ARE UNABLE TO ACCEPT HER. [place] STAFF SPOKE WITH PATIENT ABOUT TRYING TO FIND A HIGHER LEVEL OF CARE THAT WILL ACCEPT HER INSURANCE. [place] STAFF ALSO SPOKE TO PATIENT ABOUT OUTPATIENT TREATMENT FOR HER AFTERCARE PLAN. PATIENT STATED THAT SHE WANTS TO SPEAK WITH HER MOTHER FIRST. [place] STAFF WILL FOLLOW UP WITH PATIENT. STANLEY DIAZ B.A. CONCRETE BATCHER
[2019-03-11 16:00] VITALS: BP 131/83
--- NOTE | 2019-03-11 17:19 | NUR ---
MEDICATED WITH PO CLONIDINE ORDERED PER PT REQUEST FOR C/O EXTREME WITHDRAWL EVEN AFTER TX.
[2019-03-11 20:00] VITALS: BP 109/68
--- NOTE | 2019-03-11 21:00 | NUR ---
PATIENT AMBULATED TO NURSES STATION WITH BELONGINGS. STATES SHE IS GOING AMA. EDUCATED ON IMPORTANCE OF STAYING TO COMPLETE THE PROGRAM. STATES SHE WILL NOT STAY ANY LONGER. NO IV SITE TO REMOVE. DR JENKINS MADE AWARE, DELICATESSEN CLERK MADE AWARE. AMBULATED OFF OF FLOOR WITH BELONGINGS.
== END 2019-03-11 22:01 | disposition left against medical advice (07) | DRG 770 ==
LOC: ED 14:19 → 5E 15:15 → EDHOLD 15:15 → 5E 15:44
PROVIDERS: Internal Medicine; Nurse Practitioner Family; ADMIT Internal Medicine
DX: F11.23 Opioid dependence with withdrawal (principal); D72.829 Elevated white blood cell count, unspecified; E87.8 Other disorders of electrolyte and fluid balance, not elsewhere classified; F17.218 Nicotine dependence, cigarettes, with other nicotine-induced disorders; B19.20 Unspecified viral hepatitis C without hepatic coma; I36.8 Other nonrheumatic tricuspid valve disorders; I10 Essential (primary) hypertension; F41.9 Anxiety disorder, unspecified; F32.9 Major depressive disorder, single episode, unspecified; E87.6 Hypokalemia; Z53.29 Procedure and treatment not carried out because of patient's decision for other reasons; Z71.6 Tobacco abuse counseling; Z79.899 Other long term (current) drug therapy; Z80.0 Family history of malignant neoplasm of digestive organs

== ENCOUNTER → 2019-10-20 | Outpatient (CLI) | payer OTHER ==
[~2019-10-20] MED LIST changes: +LISINOPRIL20 MG PO; +TRAZODONE50 MG PO
[2019-10-20 12:33] LABS: FREE T4 0.91 ng/dl (0.76-1.46)
[2019-10-20 12:38] LABS: THYROID STIM HORMONE (HS) 1.04 uIU/ml (0.358-4.75)
== END | disposition home or self-care (01) ==
LOC: LAB 11:39
PROVIDERS: Nurse Practitioner Women's Health; ATTEND Nurse Practitioner Family
DX: N92.1 Excessive and frequent menstruation with irregular cycle (principal)

== ENCOUNTER 2020-01-20 09:58 | Emergency (ER) | payer OTHER ==
[~2020-01-20] VITALS: Ht 147.3 cm; Wt 45.4 kg
[2020-01-20 10:51] LABS: HEMATOCRIT 41.2 % (37.0-47.0); MEAN CELL VOLUME 89.8 fl (81.0-99.0); MEAN CORPUSCULAR HGB 28.5 pg (27.0-31.0); MEAN CORPUSCULAR HGB CONC 31.8 g/dl (33.0-37.0); MEAN PLATELET VOLUME 9.6 fl (9.6-12.3); PLATELET COUNT AUTOMATED 287 10*3/uL (130-400); RED BLOOD COUNT 4.59 10*6/uL (4.10-5.10); RED CELL DISTRI WIDTH 13.9 % (0-14.5); WHITE BLOOD COUNT 11.6 10*3/uL (4.8-10.8)
[2020-01-20 11:10] LABS: ALBUMIN 3.2 gm/dl (3.1-4.5); ALKALINE PHOSPHATASE 37 U/L (45-117); BUN 6 mg/dl (7-24); CHLORIDE 109 mmol/L (98-107); CREATININE 0.66 mg/dL (0.55-1.02); POTASSIUM 3.8 mmol/L (3.5-5.1); SGOT/AST 8 IU/L (3-35); SGPT/ALT 7 U/L (12-78); SODIUM 142 mmol/L (136-145); TOTAL PROTEIN 7.3 gm/dL (6.4-8.2)
[2020-01-20 11:10] LABS: TOTAL CELLS COUNTED 100 #CELLS
[2020-01-20 11:12] LABS: PLATELET SUFFICIENCY NORMAL (NORMAL)
[2020-01-20 11:14] LABS: ETHYL ALCOHOL < 3.0 mg/dl (<3)
== END 2020-01-20 13:41 | disposition left against medical advice (07) ==
LOC: ED 09:58
PROVIDERS: Nurse Practitioner Family
DX: F11.23 Opioid dependence with withdrawal (principal)

== ENCOUNTER 2020-01-27 16:22 | Emergency (ER) | payer OTHER ==
[~2020-01-27] VITALS: Ht 147.3 cm; Wt 46.7 kg
[2020-01-27] MEDS ORDERED: CITALOPRAM HYDR10 MG PO (17:47)
[2020-01-27] MEDS ORDERED: CLONIDINE HCL0.2 MG PO (17:47)
== END 2020-01-27 18:40 | disposition left against medical advice (07) ==
LOC: ED 16:22
DX: F11.23 Opioid dependence with withdrawal (principal); R09.89 Other specified symptoms and signs involving the circulatory and respiratory systems; Z53.21 Procedure and treatment not carried out due to patient leaving prior to being seen by health care provider

== ENCOUNTER 2020-03-08 10:10 | Inpatient (IN) | payer OTHER ==
[~2020-03-08] VITALS: Ht 147.3 cm; Wt 50.8 kg
[~2020-03-08 10:10] MED LIST changes: +CITALOPRAM HYDR10 MG PO; +CLONIDINE HCL0.2 MG PO
[2020-03-08 10:15] VITALS: BP 102/72
[2020-03-08 11:34] LABS: HEMATOCRIT 43.1 % (37.0-47.0); MEAN CELL VOLUME 88.7 fl (81.0-99.0); MEAN CORPUSCULAR HGB 29.2 pg (27.0-31.0); MEAN CORPUSCULAR HGB CONC 32.9 g/dl (33.0-37.0); MEAN PLATELET VOLUME 9.4 fl (9.6-12.3); PLATELET COUNT AUTOMATED 316 10*3/uL (130-400); RED BLOOD COUNT 4.86 10*6/uL (4.10-5.10); RED CELL DISTRI WIDTH 13.7 % (0-14.5)
[2020-03-08 11:48] LABS: ALBUMIN 3.5 gm/dl (3.1-4.5); ALKALINE PHOSPHATASE 53 U/L (45-117); BUN 6 mg/dl (7-24); CHLORIDE 104 mmol/L (98-107); CREATININE 0.84 mg/dL (0.55-1.02); POTASSIUM 3.4 mmol/L (3.5-5.1); SGOT/AST 10 IU/L (3-35); SGPT/ALT 14 U/L (12-78); SODIUM 137 mmol/L (136-145); TOTAL PROTEIN 7.4 gm/dL (6.4-8.2)
[2020-03-08 11:49] LABS: BETA-HCG, QUANT < 1.0 mIU/mL (1-3); ETHYL ALCOHOL < 3.0 mg/dl (<3)
[2020-03-08 11:52] LABS: ATYPICAL LYMPHS 1 % (0-0); BASOPHILS 1 % (0-1); PLATELET SUFFICIENCY NORMAL (NORMAL); TOTAL CELLS COUNTED 100 #CELLS
[2020-03-08 12:58] LABS: URINE AMPHETAMINES < 1000 (1000ng/ml); URINE BARBITURATES < 200 (200ng/ml); URINE BENZODIAZEPINES < 200 (200ng/ml); URINE CANNABINOIDS (THC) < 50 (50ng/ml); URINE COCAINE > 300 (300ng/ml); URINE METHADONE < 300 (300ng/ml); URINE OPIATES > 300 (300ng/ml)
[2020-03-08 12:59] LABS: BILIRUBIN Negative (Negative); BLOOD Negative (Negative); CLARITY Cloudy (Clear); COLOR Dark Yellow (Yellow); GLUCOSE Negative (Negative); KETONE 1+ (Negative); LEUKO ESTERASE 1+ (Negative); NITRITE Negative (Negative); PH 5.5 (4.5-8.0); SPECIFIC GRAVITY 1.025 (1.001-1.030)
[2020-03-08 13:08] LABS: URINE PHENCYCLIDINE < 25 (25ng/ml)
[2020-03-08 13:17] LABS: BACTERIA 1+; CALCIUM OXALATE CRYSTALS 4+; MUCOUS 2+
[2020-03-09] VITALS: BP 100/68
== END 2020-03-09 03:09 | disposition left against medical advice (07) | DRG 770 ==
LOC: ED 10:10 → EDHOLD 11:17 → 5E 21:32
PROVIDERS: Emergency Medicine; ADMIT Internal Medicine; ATTEND Internal Medicine
DX: F11.23 Opioid dependence with withdrawal (principal); E87.6 Hypokalemia; F32.9 Major depressive disorder, single episode, unspecified; F17.210 Nicotine dependence, cigarettes, uncomplicated; R73.9 Hyperglycemia, unspecified; I10 Essential (primary) hypertension; Z53.29 Procedure and treatment not carried out because of patient's decision for other reasons; F14.10 Cocaine abuse, uncomplicated; I07.9 Rheumatic tricuspid valve disease, unspecified; B18.2 Chronic viral hepatitis C; F41.9 Anxiety disorder, unspecified; Z98.891 History of uterine scar from previous surgery; Z80.0 Family history of malignant neoplasm of digestive organs; R82.71 Bacteriuria

== ENCOUNTER → 2021-08-09 | Day surgery (SDC) | payer OTHER ==
[~2021-08-09] VITALS: Ht 147.3 cm; Wt 43.1 kg
[2021-08-09 11:10] VITALS: BP 99/56
[2021-08-09 13:06] VITALS: BP 133/76
[2021-08-09 13:20] VITALS: BP 103/63
[2021-08-09 13:35] VITALS: BP 111/66
[2021-08-09 13:50] VITALS: BP 107/68
[2021-08-09 14:05] VITALS: BP 116/62
== END | disposition home or self-care (01) ==
LOC: SDC 08-04 14:00
PROVIDERS: ATTEND Dentist General Practice
DX: K02.9 Dental caries, unspecified (principal); F41.9 Anxiety disorder, unspecified

== ENCOUNTER 2022-02-09 21:39 | Emergency (ER) | payer OTHER | END 2022-02-09 23:25 | disposition left against medical advice (07) | LOC: ED 21:39 | DX: Z20.2 Contact with and (suspected) exposure to infections with a predominantly sexual mode of transmission (principal); Z53.21 Procedure and treatment not carried out due to patient leaving prior to being seen by health care provider ==

== ENCOUNTER 2022-03-23 14:36 | Emergency (ER) | payer OTHER ==
[~2022-03-23] VITALS: Ht 147.3 cm; Wt 43.1 kg
== END 2022-03-23 15:26 | disposition left against medical advice (07) ==
LOC: ED 14:36
DX: Z53.21 Procedure and treatment not carried out due to patient leaving prior to being seen by health care provider (principal)

== ENCOUNTER 2024-05-18 22:14 | Emergency (ER) | payer OTHER ==
[~2024-05-18] VITALS: Ht 139.7 cm; Wt 49.9 kg
[2024-05-18] MEDS ORDERED: SODIUM CHLORIDE 0.9% 1,000 ML IV ONE (22:20)
[2024-05-18] MEDS ORDERED: Ondansetron Hydrochloride 4 MG/2 ML VIAL IV ONE (22:20)
[2024-05-19 00:02] LABS: BASO % 0.2 % (0.0-1.0); EOS % 0.2 % (1.0-4.0); HEMATOCRIT 38.1 % (37.0-47.0); MEAN CELL VOLUME 91.4 fl (81.0-99.0); MEAN CORPUSCULAR HGB 30.9 pg (27.0-31.0); MEAN CORPUSCULAR HGB CONC 33.9 g/dl (33.0-37.0); MEAN PLATELET VOLUME 9.3 fl (9.6-12.3); MONO # 0.7 10*3/uL (0.1-1.0); MONO % 3.9 % (3.0-9.0); NEUT # 13.2 10*3/uL (2.3-7.9); NEUT % 78.6 % (47.0-73.0); PLATELET COUNT AUTOMATED 263 10*3/uL (130-400); RED BLOOD COUNT 4.17 10*6/uL (4.10-5.10); RED CELL DISTRI WIDTH 12.9 % (0-14.5); WHITE BLOOD COUNT 16.8 10*3/uL (4.8-10.8)
[2024-05-19 00:21] LABS: BUN 53 mg/dl (9-23); CHLORIDE 95 mmol/L (98-107); POTASSIUM 4.1 mmol/L (3.4-5.1)
[2024-05-19 00:22] LABS: ETHYL ALCOHOL < 3.0 mg/dl (<3)
== END 2024-05-19 00:10 | disposition left against medical advice (07) ==
LOC: ED 22:14
PROVIDERS: Internal Medicine
DX: R10.9 Unspecified abdominal pain (principal); F17.200 Nicotine dependence, unspecified, uncomplicated; Z87.442 Personal history of urinary calculi; Z98.890 Other specified postprocedural states; Z53.29 Procedure and treatment not carried out because of patient's decision for other reasons

== ENCOUNTER 2024-11-22 19:51 | Emergency (ER) | payer OTHER ==
[~2024-11-22] VITALS: Ht 149.8 cm; Wt 48.1 kg
[~2024-11-22 19:51] MED LIST changes: +SUBOXONE 8 MG-1 EACH BC
[2024-11-22] MEDS ORDERED: Tdap Vaccine 0.5 ML SYR (Adult Vaccine) IM ONE (20:20)
[2024-11-22] MEDS ORDERED: Naloxone Hydrochloride 2 MG/2 ML SYR ONE (20:42)
[2024-11-22] MEDS ORDERED: Naloxone Hydrochloride 2 MG/2 ML SYR NAS ONE (20:45)
[2024-11-22] MEDS ORDERED: Amoxicillin/Clavulanate Pota 875 MG TAB PO ONE (21:10)
[2024-11-22] MEDS ORDERED: AMOX-CLAV 875-1 EACH PO (22:04)
== END 2024-11-22 22:27 ==
LOC: ED 19:51
DX: S81.831A Puncture wound without foreign body, right lower leg, initial encounter (principal); F17.200 Nicotine dependence, unspecified, uncomplicated; Z98.890 Other specified postprocedural states; W54.0XXA Bitten by dog, initial encounter; Y93.89 Activity, other specified; Y92.89 Other specified places as the place of occurrence of the external cause; Y99.8 Other external cause status